=== PATIENT | female | born 1945 | race Caucasian/White ===

== ENCOUNTER 2016-05-12 10:15 | Emergency (ER) | payer OTHER ==
[~2016-05-12] VITALS: Ht 157.5 cm; Wt 90.7 kg
[~2016-05-12 10:15] MED LIST: ACTOS15 MG; AMLODIPINE BESYL5 M1 PO; BYSTOLIC10 MG PO; CLARITIN10 MG; DEXILANT60 MG PO; DOXYCYCLINE 10100 MG PO; ESTRACE0.5 MG; FLONASE 0.05%50 MCG NASAL; GLIPIZIDE ER2.5 MG; GLYBURIDE 2.52.5 MG PO; HYDROCODON-ACE1 EAC5 PO; JANUVIA100 MG PO; JANUVIA25 MG; JANUVIA25 MG PO; LASIX 40 MG TAB40 M1; LASIX 40 MG TAB40 M2 PO; LINZESS290 MCG PO; LIPITOR80 MG PO; METFORMIN HCL500 MG PO; NORCO 5-325 TA1 EACH PO; NORVASC2.5 MG PO; OXYCONTIN10 M1 PO; PLAVIX 75 MG TA75 M1 PO; POTASSIUM CHLO10 ME1; PRINIVIL20 MG PO; SYNTHROID125 MCG; VITAMIN B-12500 MCG PO; VYTORIN 10-401 EACH; VYTORIN 10-801 EACH PO; [UNRECOGNIZED DRUG - OTHER]
[2016-05-12] MEDS ORDERED: METFORMIN HCL500 MG PO (10:53)
[2016-05-12 11:00] LABS: ABSOLUTE NEUTROPHILS 4.3 thou/uL (1.4-8.2); BASOPHILS 0.7 % (0.0-2.0); EOSINOPHILS 3.7 % (0.0-3.0); HEMATOCRIT 32.2 % (37.0-47.0); HEMOGLOBIN 11.2 gm/dL (12.0-15.0); LYMPHOCYTES 35.6 % (24.0-44.0); MCH 30.3 pg (26.0-34.0); MCHC 34.9 % (28.0-37.0); MCV 86.9 fL (80.0-100.0); PLATELET COUNT 276 thou/uL (150-400); RBC 3.71 mil/uL (4.20-5.00); RDW 13.4 % (10.5-14.5); WBC 8.4 thou/uL (4.0-11.0)
[2016-05-12 11:01] LABS: URINE BILIRUBIN NEGATIVE (Negative); URINE BLOOD NEGATIVE (Negative); URINE COLOR YELLOW; URINE GLUCOSE-RANDOM* NEGATIVE (Negative); URINE KETONES NEGATIVE (Negative); URINE NITRITE NEGATIVE (Negative); URINE PROTEIN (DIPSTICK) NEGATIVE (Negative); URINE UROBILINOGEN 0.2 E.U./dl (0.2-1.0)
[2016-05-12 11:03] LABS: MANUAL DIFF NO
[2016-05-12 11:07] LABS: ANION GAP 10 mmol/L (7-16); BUN 26 mg/dL (7-18); CALCIUM 8.9 mg/dL (8.5-10.1); CHLORIDE 102 mmol/L (98-107); CO2 27 mmol/L (21-32); CREATININE 1.4 mg/dL (0.6-1.3); GLUCOSE 142 mg/dL (70-99); POTASSIUM 4.4 mmol/L (3.5-5.1); SODIUM 139 mmol/L (136-145)
[2016-05-12 11:09] LABS: BACTERIA 1-9 Few /HPF (None Seen); CASTS None Seen /LPF (None Seen); CRYSTALS None Seen /LPF (None Seen); SQUAMOUS 0-3 Few /LPF (0-3); URINE RBC None Seen /HPF (0-2); URINE WBC 0-5 Rare /HPF (0-5)
[2016-05-12 11:13] LABS: ALBUMIN 3.9 g/dL (3.4-5.0); ALKALINE PHOSPHATASE 82 U/L (46-116); DIRECT BILIRUBIN < 0.1 mg/dL (<0.1-0.3); SGOT 16 U/L (15-37); SGPT 36 U/L (30-65); TOTAL BILIRUBIN 0.3 mg/dL (<0.1-1.0); TOTAL PROTEIN 7.3 g/dL (6.4-8.2)
== END 2016-05-12 12:54 | disposition home or self-care (01) ==
LOC: ER 10:15
PROVIDERS: Nurse Practitioner
DX: R10.31 Right lower quadrant pain (principal); E11.9 Type 2 diabetes mellitus without complications; I10 Essential (primary) hypertension; E03.9 Hypothyroidism, unspecified; M32.9 Systemic lupus erythematosus, unspecified; Z88.0 Allergy status to penicillin; F10.99 Alcohol use, unspecified with unspecified alcohol-induced disorder